=== PATIENT | male | born 1950 | race Caucasian/White ===

== ENCOUNTER 2018-05-04 15:40 | Observation (INO) | payer MEDICARE, OTHER ==
[~2018-05-04 15:40] MED LIST: ATOR40TA49 PO; GLYB2.5T3 OR; LEVE500 PO; LISI2.5T55 PO; MACR100C PO; METO50TA OR; PLAV75TA PO; SERT-129 PO; VITA500S3 PO
[2018-05-04 16:00] VITALS: BP 166/81; PULSE 60; RESP 20; TEMP 98.1; O2SAT 96
[2018-05-04] MEDS ORDERED: SODIUM CHLORIDE 0.9% FLUSH 10 ML FLUSH IVF PRN (16:00)
[2018-05-04] MEDS ORDERED: ZOLO50TA PO (16:18)
[2018-05-04] MEDS ORDERED: METO25TA3 PO (16:18)
[2018-05-04] MEDS ORDERED: ASPI81TA16 PO (16:18)
[2018-05-04] MEDS ORDERED: NU-IRON PO (16:18)
[2018-05-04] MEDS ORDERED: SENN8.6T8 PO (16:18)
[2018-05-04] MEDS ORDERED: MULTTAB62 PO (16:18)
[2018-05-04] MEDS ORDERED: TYLE325T PO (16:18)
[2018-05-04] MEDS ORDERED: CHLO.12%30 SWISH-SPIT (16:18)
[2018-05-04] MEDS ORDERED: VITA250T3 PO (16:18)
[2018-05-04] MEDS ORDERED: COLA100C5 PO (16:18)
--- NOTE | 2018-05-04 16:33 | PD ---
HPI Chief Complaint: Chest Pain Time Seen by Provider: 16:15 Travel History International Travel<30 days: No Contact w/Intl Traveler<30days: No Traveled to known affect area: No History of Present Illness HPI The patient 67 years old. He arrives to the ED by EMS. He arrives in indigo manner. His past medical history includes diabetes hypertension hyperlipidemia coronary artery disease and stroke. Dementia is also included on the patient's list of diagnoses. At the nursing facility today he was observed to have been in distress evidently clutching his heart. This lasted about 10-15 minutes. He received 2 full dose aspirins. Pain resolved in route to the ED. EMS reports normal vital signs en route. The patient denies chest pain in the ED. PFSH Past Medical History Arthritis: Yes Blood Disorders: No Cancer: No Cardiac Catheterization: Yes Cardiovascular Problems: Yes High Cholesterol: Yes Chemotherapy: No Congestive Heart Failure: No Cerebrovascular Accident: Yes (X 2 RECENTLY, with R vertebral artery dissection ) Coronary Artery Disease: Yes Diabetes: Yes Endocrine: Yes Genitourinary: Yes Hypertension: Yes Immune Disorder: No Kidney Stones: Yes Neurologic: No Psychiatric: No Reproductive: No Respiratory: No Radiation Therapy: No Ulcer: Yes Past Surgical History [facility] St[facility]: Yes ([facility]) Eye Surgery: Yes Other Surgery: Yes (PVD STENT LEFT FEMORAL) Social History Alcohol Use: Yes (RUN - PT STATES HE HAD 2 DRINKS TODAY) Tobacco Use: Yes (11/30 PPD) Substance Use: No Allergies-Medications (Allergen,Severity, Reaction): Coded Allergies: quetiapine (Unverified Adverse Reaction, Unknown, 06/23/17) IRREGULAR HEART BEAT Reported Meds & Prescriptions Reported Meds & Active Scripts Active Reported Senna S (Sennosides-Docusate Sodium) 8.6-50 Mg Tab 1 Tab PO BID PRN Colace (Docusate Sodium) 100 Mg Capsule 100 Mg PO Q12HR Metoprolol Tartrate 25 Mg Tab 25 Mg PO BID Chlorhexidine Gluconate (Mouth) Liq (Chlorhexidine Gluconate) 0.12% Soln 30 Ml SWISH-SPIT BIDPC Vitamin C (Ascorbic Acid) 250 Mg Tab 500 Mg PO DAILY Tylenol (Acetaminophen) 325 Mg Tab 650 Mg PO Q4H PRN Poly-Iron 150 (Polysaccharide Iron Complex) 150 Mg Iron Cap 150 Mg PO DAILY Multi-Vitamin/Minerals (Multiple Vitamins W/ Minerals) 1 Tab Tab 1 Tab PO DAILY Zoloft (Sertraline HCl) 50 Mg Tab 50 Mg PO DAILY Aspirin Adult Low Strength (Aspirin) 81 Mg Tabdr 81 Mg PO DAILY Review of Systems ROS Limitations: Clinical Condition Physical Exam Narrative GENERAL: 67-year-old male no acute distress awake somewhat of a poor historian SKIN: Warm and dry. HEAD: Atraumatic. Normocephalic. EYES: Pupils equal and round. No scleral icterus. No injection or drainage. ENT: No nasal bleeding or discharge. Mucous membranes pink and moist. NECK: Trachea midline. No JVD. CARDIOVASCULAR: Regular rate and rhythm. RESPIRATORY: No accessory muscle use. Clear to auscultation. Breath sounds equal bilaterally. GASTROINTESTINAL: Abdomen soft, non-tender, nondistended. Hepatic and splenic margins not palpable. MUSCULOSKELETAL: Extremities without clubbing, cyanosis, or edema. No obvious deformities. NEUROLOGICAL: Awake and alert. The patient answers yes and no some questions. There is flexion deformity of the right upper extremity. PSYCHIATRIC: Appropriate mood and affect; insight and judgment normal. Data Data Last Documented VS Vital Signs Date Time Temp Pulse Resp B/P (MAP) Pulse Ox O2 Delivery O2 Flow Rate FiO2 05/04/18 16:55 98 Room Air 05/04/18 16:00 98.1 60 20 166/81 (109) Orders Orders Ckmb (Isoenzyme) Profile (05/04/18 15:54) Complete Blood Count With Diff (05/04/18 15:54) Comprehensive Metabolic Panel (05/04/18 15:54) Magnesium (Mg) (05/04/18 15:54) Prothrombin Time / Inr (Pt) (05/04/18 15:54) Act Partial Throm Time (Ptt) (05/04/18 15:54) Troponin I (05/04/18 15:54) Ecg Monitoring (05/04/18 15:54) Bilateral Bp Monitoring (05/04/18 15:54) Iv Access Insert/Monitor (05/04/18 15:54) Oximetry (05/04/18 15:54) Oxygen Administration (05/04/18 15:54) Sodium Chloride 0.9% Flush (Ns Flush) (05/04/18 16:00) Chest, Pa & Lat (05/04/18 15:54) Activity Bed Rest With Brp (05/04/18 17:07) Vital Signs (Adult) Q4H (05/04/18 17:07) Cardiac Rhythm .As Directed (05/04/18 17:07) Notify Dr: Other .PRN (05/04/18 17:07) Notify DrGonzalez Parameters (05/04/18 17:07) Resp Oxygen Nasal Cannula (05/04/18 ) Ckmb (Isoenzyme) Profile (05/04/18 17:07) Ckmb (Isoenzyme) Profile (05/04/18 20:07) Troponin I (05/04/18 17:07) Troponin I (05/04/18 20:07) Electrocardiogram (05/04/18 17:07) Electrocardiogram (05/04/18 20:07) ^ Obtain (05/04/18 17:07) Sodium Chloride 0.9% Flush (Ns Flush) (05/04/18 17:15) Sodium Chloride 0.9% Flush (Ns Flush) (05/04/18 21:00) Acetamin-Hydrocod 325-7.5 Mg ([place] 7.5 (05/04/18 17:15) Morphine Inj (Morphine Inj) (05/04/18 17:15) Ondansetron Inj (Zofran Inj) (05/04/18 17:15) Nitroglycerin 2% Oint (Nitroglycerin 2% (05/04/18 18:00) Nitroglycerin Sl (Nitrostat Sl) (05/04/18 17:15) Aspirin (Aspirin) (05/05/18 09:00) Customer Care Representative / Telemetry VERA.Q8H (05/04/18 17:07) Admit Order (Ed Use Only) (05/04/18 17:14) Labs Laboratory Tests Test 05/04/18 16:18 White Blood Count 7.8 TH/MM3 Red Blood Count 4.56 MIL/MM3 Hemoglobin 13.4 GM/DL Hematocrit 40.3 % Mean Corpuscular Volume 88.4 FL Mean Corpuscular Hemoglobin 29.4 PG Mean Corpuscular Hemoglobin Concent 33.3 % Red Cell Distribution Width 13.3 % Platelet Count 305 TH/MM3 Mean Platelet Volume 8.7 FL Neutrophils (%) (Auto) 70.7 % Lymphocytes (%) (Auto) 14.4 % Monocytes (%) (Auto) 10.0 % Eosinophils (%) (Auto) 4.3 % Basophils (%) (Auto) 0.6 % Neutrophils # (Auto) 5.5 TH/MM3 Lymphocytes # (Auto) 1.1 TH/MM3 Monocytes # (Auto) 0.8 TH/MM3 Eosinophils # (Auto) 0.3 TH/MM3 Basophils # (Auto) 0.0 TH/MM3 CBC Comment DIFF FINAL Differential Comment Prothrombin Time 10.1 SEC Prothromb Time International Ratio 1.0 RATIO Activated Partial Thromboplast Time 31.4 SEC Blood Urea Nitrogen 28 MG/DL Creatinine 1.35 MG/DL Random Glucose 118 MG/DL Total Protein 8.2 GM/DL Albumin 3.6 GM/DL Calcium Level 9.2 MG/DL Magnesium Level 2.5 MG/DL Alkaline Phosphatase 97 U/L Aspartate Amino Transf (AST/SGOT) 26 U/L Alanine Aminotransferase (ALT/SGPT) 19 U/L Total Bilirubin 0.2 MG/DL Sodium Level 141 MEQ/L Potassium Level 3.9 MEQ/L Chloride Level 105 MEQ/L Carbon Dioxide Level 29.0 MEQ/L Anion Gap 7 MEQ/L Estimat Glomerular Filtration Rate 53 ML/MIN Total Creatine Kinase 46 U/L Troponin I LESS THAN 0.02 NG/ML MDM Medical Decision Making Medical Screen Exam Complete: Yes Emergency Medical Condition: Yes Medical Record Reviewed: Yes Differential Diagnosis NSTEMI, unstable angina, coronary vasospasm, PE, PTX, aortic dissection, pericarditis, myocarditis, endocarditis, PNA, esophageal disease, aneurysm, musculoskeletal etiologies, anxiety, cocaine/sympathomimetic abuse Narrative Course CBC & BMP Diagram 05/04/18 16:18 Albumin 3.6, Calcium Level 9.2, Magnesium Level 2.5, Aspartate Amino Transf (AST /SGOT) 26, Alanine Aminotransferase (ALT/SGPT) 19 EKG shows a sinus rhythm with a rate of [address] changes with T-wave flattening in the precordial leads noted Last Impressions Chest X-Ray 05/04/18 1554 Signed Impressions: CONCLUSION: No acute cardiopulmonary abnormality is identified. Chest pain center protocol considered next best step for this patient. Diagnosis Primary Impression: Chest pain Qualified Codes: R07.9 - Chest pain, unspecified Admitting Information Admitting Physician Requests: Observation Gopal Okeefe MD May 04, 2018 16:33
--- NOTE | 2018-05-04 16:42 | RADRPT ---
EXAM DATE: 05/04/2018 4:19 PM EDT AGE/SEX: 67 years / Male INDICATIONS: Chest pain. CLINICAL DATA: This is the patient's initial encounter. Patient reports that signs and symptoms have been present for 1 day and indicates a pain score of 9/10. MEDICAL/SURGICAL HISTORY: Hypercholesterolemia. Hypertension. Mesenteric ischemia. Cerebrova scular accident, CAD, Ulcer, Kidney stones, Arthritis, Endocrine disorders, Diabetes, PTSD Coronary artery stent. Right vertebral artery dissection, Right leg bypass, Eye surgery with prosthesis [place] [facility] [place] 05[place]. . FINDINGS: AP and lateral views of the chest demonstrate a normal-sized cardiac silhouette. There is no effusion , consolidation, or pneumothorax. The bones and soft tissues demonstrate no acute abnormality. CONCLUSION: No acute cardiopulmonary abnormality is identified. Electronically signed by: Corey Trinidad MD 05/04/2018 4:41 PM EDT
[2018-05-04 16:48] LABS: PROTHROMBIN TIME - PATIENT 10.1 SEC (9.8-11.6)
[2018-05-04 16:53] LABS: AUTOMATED NEUTROPHIL # 5.5 TH/MM3 (1.8-7.7); BASOPHIL % 0.6 % (0.0-2.0); EOSINOPHIL # 0.3 TH/MM3 (0-0.4); EOSINOPHIL % 4.3 % (0.0-4.0); HEMATOCRIT 40.3 % (39.0-51.0); HEMOGLOBIN 13.4 GM/DL (13.0-17.0); LYMPH % 14.4 % (9.0-44.0); LYMPHOCYTE # 1.1 TH/MM3 (1.0-4.8); MEAN CELL VOLUME 88.4 FL (80.0-100.0); MEAN CORPUSCULAR HEMOGLOBIN 29.4 PG (27.0-34.0); MEAN CORPUSCULAR HGB CONC 33.3 % (32.0-36.0); MEAN PLATELET VOLUME 8.7 FL (7.0-11.0); MONOCYTE # 0.8 TH/MM3 (0-0.9); NEUT % 70.7 % (16.0-70.0); PLATELET COUNT 305 TH/MM3 (150-450); RED BLOOD COUNT 4.56 MIL/MM3 (4.50-5.90); RED CELL DISTRIBUTION WIDTH 13.3 % (11.6-17.2); WHITE BLOOD COUNT 7.8 TH/MM3 (4.0-11.0)
[2018-05-04 16:55] VITALS: O2SAT 98
[2018-05-04 17:05] LABS: ALBUMIN 3.6 GM/DL (3.4-5.0); ALT (GPT) 19 U/L (12-78); AST (GOT) 26 U/L (15-37); BLOOD UREA NITROGEN 28 MG/DL (7-18); CALCIUM 9.2 MG/DL (8.5-10.1); CHLORIDE 105 MEQ/L (98-107); CREATININE 1.35 MG/DL (0.60-1.30); GLOMERULAR FILTRATION RATE 53 ML/MIN (>89); GLUCOSE,RANDOM 118 MG/DL (74-106); MAGNESIUM 2.5 MG/DL (1.5-2.5); SODIUM (NA) 141 MEQ/L (136-145)
[2018-05-04 17:09] LABS: ALKALINE PHOSPHATASE 97 U/L (45-117); TOTAL BILIRUBIN ADULT 0.2 MG/DL (0.2-1.0); TOTAL PROTEIN 8.2 GM/DL (6.4-8.2); TROPONIN I LESS THAN 0.02 NG/ML (0.02-0.05)
[2018-05-04] MEDS ORDERED: MORPHINE SULFATE 4 MG/ML INJ IV PUSH PRN (17:15)
[2018-05-04] MEDS ORDERED: ACETAMINOPHEN/HYDROcodone 325 MG/7.5 MG TAB PO PRN (17:15)
[2018-05-04] MEDS ORDERED: ONDANSETRON HCL 4 MG/2 ML VIAL IV PUSH PRN (17:15)
[2018-05-04] MEDS ORDERED: NITROGLYCERIN 0.4 MG SL 25 TABS/BTL SL PRN (17:15)
[2018-05-04] MEDS ORDERED: SODIUM CHLORIDE 0.9% FLUSH 10 ML FLUSH IV FLUSH PRN (17:15)
[2018-05-04 17:58] VITALS: O2SAT 98
[2018-05-04] MEDS: NITROGLYCERIN 2% OINT 1 GM PACKET TOP SCH (18:00)
[2018-05-04 20:13] VITALS: BP 132/62; PULSE 58; RESP 16; TEMP 98; O2SAT 100
[2018-05-04 20:35] LABS: TROPONIN I LESS THAN 0.02 NG/ML (0.02-0.05)
[2018-05-04] MEDS: SODIUM CHLORIDE 0.9% FLUSH 10 ML FLUSH IV FLUSH SCH (22:29)
[2018-05-04 23:01] LABS: TROPONIN I LESS THAN 0.02 NG/ML (0.02-0.05)
[2018-05-05 00:16] VITALS: BP 151/66; PULSE 58; RESP 16; TEMP 98.2; O2SAT 97
[2018-05-05] MEDS: NITROGLYCERIN 2% OINT 1 GM PACKET TOP SCH ×3 (00:38→12:00)
[2018-05-05 02:55] VITALS: PULSE 51
[2018-05-05 04:01] VITALS: BP 126/58; PULSE 70; RESP 17; TEMP 98; O2SAT 97
--- NOTE | 2018-05-05 07:35 | HHI.HP ---
HPI Primary Care Physician Lanre Kent MD (Paul) Chief Complaint Chest pain History of Present Illness 67-year-old male with history of coronary artery disease, hypertension, hyperlipidemia, dementia, and CVA with right-sided deficits currently under hospice care presents emergency room for further evaluation of chest pain. Onset last evening. Location substernal. Characterized as sharp. Duration 3 hours. Her to take a deep breath. No other associated symptoms of nausea, vomiting, dyspnea, or diaphoresis. Denies similar pain in the past. Resides [facility] [place] [facility] and essentially bedbound. No current chest discomfort. Review of Systems General: No fatigue, weakness, fever, chills, or recent illness. Patient is somewhat of a poor historian. HEENT: No MUÑOZ, no vision changes CV: As stated above. No current chest discomfort. RESP: No SOB. Nonproductive cough. GI: No nausea, vomiting, or bowel changes : No dysuria, urgency, frequency EXT: No lower leg edema MS: No discomfort or change in ROM. Right side weakness status post CVA. NEURO: History of CVA 3, CVA 2012 severe. States left his right side weak. PSYCH: No anxiety or depression SKIN: No rashes, no concerning lesions Past Family Social History Allergies: Coded Allergies: quetiapine (Unverified Adverse Reaction, Unknown, 06/23/17) IRREGULAR HEART BEAT Past Medical History Hypertension, hyperlipidemia, CAD, CVAx3, [place], multiple cardiac stents, PVD, dementia, right vertebral dissection (2012), right sided deficit, remote etoh abuse Past Surgical History Fem bypass (2009) Reported Medications Reported Meds & Active Scripts Active Reported Senna S (Sennosides-Docusate Sodium) 8.6-50 Mg Tab 1 Tab PO BID PRN Colace (Docusate Sodium) 100 Mg Capsule 100 Mg PO Q12HR Metoprolol Tartrate 25 Mg Tab 25 Mg PO BID Chlorhexidine Gluconate (Mouth) Liq (Chlorhexidine Gluconate) 0.12% Soln 30 Ml SWISH-SPIT BIDPC Vitamin C (Ascorbic Acid) 250 Mg Tab 500 Mg PO DAILY Tylenol (Acetaminophen) 325 Mg Tab 650 Mg PO Q4H PRN Poly-Iron 150 (Polysaccharide Iron Complex) 150 Mg Iron Cap 150 Mg PO DAILY Multi-Vitamin/Minerals (Multiple Vitamins W/ Minerals) 1 Tab Tab 1 Tab PO DAILY Zoloft (Sertraline HCl) 50 Mg Tab 50 Mg PO DAILY Aspirin Adult Low Strength (Aspirin) 81 Mg Tabdr 81 Mg PO DAILY Active Ordered Medications Current Medications Medications (Trade) Dose Ordered Sig/Gabi Route Start Time Stop Time Status Last Admin (NS Flush) 2 ml UNSCH PRN IVF 05/04/18 16:00 (NS Flush) 2 ml UNSCH PRN IV FLUSH 05/04/18 17:15 (NS Flush) 2 ml BID IV FLUSH 05/04/18 21:00 05/04/18 22:29 ([place] 7.5-325 Mg) 1 tab Q4H PRN PO 05/04/18 17:15 (Morphine Inj) 2 mg Q4H PRN IV PUSH 05/04/18 17:15 (Zofran Inj) 4 mg Q6H PRN IV PUSH 05/04/18 17:15 (Nitroglycerin 2% Oint) 1 inch Q6HR TOP 05/04/18 18:00 05/05/18 06:13 (Nitrostat Sl) 0.4 mg Q5M PRN SL 05/04/18 17:15 (Aspirin) 325 mg DAILY PO 05/05/18 09:00 Social History Known coronary artery disease, hypertension, and hyperlipidemia. No known diabetes (despite medical records) Past cardiac testing No recent testing. Spoke with family member, who is a RN here at [facility]. Reports multiple cardiac stents, possibly 7 stents. Physical Exam Vital Signs Vital Signs Date Time Temp Pulse Resp B/P (MAP) Pulse Ox O2 Delivery O2 Flow Rate FiO2 05/05/18 04:01 98.0 70 17 126/58 (80) 97 05/05/18 02:55 51 05/05/18 00:16 98.2 58 16 151/66 (94) 97 05/04/18 20:13 98.0 58 16 132/62 (85) 100 05/04/18 17:58 98 21 05/04/18 16:55 98 Room Air 05/04/18 16:55 98 Room Air 05/04/18 16:00 98.1 60 20 166/81 (109) 96 Physical Exam GENERAL: Alert thin, frail, WD, NAD, pleasant, elderly male who is somewhat of a poor historian. HEAD: NC, AT EYES: Sclera clear, conjunctiva without injection, pupils equal and round ENT: Mucous membranes pink and moist, no nasal discharge or bleeding CV: RRR, without murmur, rub, gallop, no JVD, S1-S2 no S3-S4. RESP: Clear lungs throughout bilateral, no crackles, wheeze, rhonchi, symmetrical chest rise, nonlabored, able to speak in full sentences ABD: Soft, NT, ND, no masses, positive bowel tones EXT: Pulses +2x4, no dependent edema MS: Normal tone x4 extremities, nontender, no obvious deformities, full range of motion NEURO: Right sided weakness PSYCH: A+O x3, pleasant affect, appropriate speech, mood, insight and judgment SKIN: Normal turgor, normal texture, no lesions, no rashes Laboratory Laboratory Tests Test 05/04/18 16:18 05/04/18 19:15 05/04/18 22:30 White Blood Count 7.8 Red Blood Count 4.56 Hemoglobin 13.4 Hematocrit 40.3 Mean Corpuscular Volume 88.4 Mean Corpuscular Hemoglobin 29.4 Mean Corpuscular Hemoglobin Concent 33.3 Red Cell Distribution Width 13.3 Platelet Count 305 Mean Platelet Volume 8.7 Neutrophils (%) (Auto) 70.7 Lymphocytes (%) (Auto) 14.4 Monocytes (%) (Auto) 10.0 Eosinophils (%) (Auto) 4.3 Basophils (%) (Auto) 0.6 Neutrophils # (Auto) 5.5 Lymphocytes # (Auto) 1.1 Monocytes # (Auto) 0.8 Eosinophils # (Auto) 0.3 Basophils # (Auto) 0.0 CBC Comment DIFF FINAL Differential Comment Prothrombin Time 10.1 Prothromb Time International Ratio 1.0 Activated Partial Thromboplast Time 31.4 Blood Urea Nitrogen 28 Creatinine 1.35 Random Glucose 118 Total Protein 8.2 Albumin 3.6 Calcium Level 9.2 Magnesium Level 2.5 Alkaline Phosphatase 97 Aspartate Amino Transf (AST/SGOT) 26 Alanine Aminotransferase (ALT/SGPT) 19 Total Bilirubin 0.2 Sodium Level 141 Potassium Level 3.9 Chloride Level 105 Carbon Dioxide Level 29.0 Anion Gap 7 Estimat Glomerular Filtration Rate 53 Total Creatine Kinase 46 42 42 Troponin I LESS THAN 0.02 LESS THAN 0.02 LESS THAN 0.02 Result Diagram: 05/04/18 1618 05/04/18 1618 Imaging Last 24 hours Impressions Chest X-Ray 05/04/18 6307 Signed Impressions: CONCLUSION: No acute cardiopulmonary abnormality is identified. Course EKG NSR, normal axis, t wave nonspecific changes Caprini VTE Risk Assessment Caprini VTE Risk Assessment: Mod/High Risk (score >= 2) Caprini Risk Assessment Model Point Value = 1 Point Value = 2 Point Value = 3 Point Value = 5 Age 41-60 Minor surgery BMI > 25 kg/m2 Swollen legs Varicose veins or History of unexplained or recurrent spontaneous Oral contraceptives or hormone replacement Sepsis (< 1 month) Serious lung disease, including pneumonia (< 1 month) Abnormal pulmonary function Acute myocardial infarction Congestive heart failure (< 1 month) History of inflammatory bowel disease Medical patient at bed rest Age 61-74 Arthroscopic surgery Major open surgery (> 45 min) Laparoscopic surgery (> 45 min) Malignancy Confined to bed (> 72 hours) Immobilizing plaster cast Central venous access Age >= 75 History of VTE Family history of VTE Factor V Leiden Prothrombin [id number] Lupus anticoagulant Anticardiolipin antibodies Elevated serum homocysteine Heparin-induced thrombocytopenia Other congenital or acquired thrombophilia Stroke (< 1 month) Elective arthroplasty Hip, pelvis, or leg fracture Acute spinal cord injury (< 1 month) Prophylaxis Regimen Total Risk Factor Score Risk Level Prophylaxis Regimen 0-1 Low Early ambulation 2 Moderate Order ONE of the following: *Sequential Compression Device (SCD) *Heparin 5000 units SQ BID 3-4 Higher Order ONE of the following medications: *Heparin 5000 units SQ TID *Enoxaparin/Lovenox 40 mg SQ daily (WT < 150 kg, CrCl > 30 mL/min) *Enoxaparin/Lovenox 30 mg SQ daily (WT < 150 kg, CrCl > 10-29 mL/min) *Enoxaparin/Lovenox 30 mg SQ BID (WT < 150 kg, CrCl > 30 mL/min) AND/OR *Sequential Compression Device (SCD) 5 or more Highest Order ONE of the following medications: *Heparin 5000 units SQ TID (Preferred with Epidurals) *Enoxaparin/Lovenox 40 mg SQ daily (WT < 150 kg, CrCl > 30 mL/min) *Enoxaparin/Lovenox 30 mg SQ daily (WT < 150 kg, CrCl > 10-29 mL/min) *Enoxaparin/Lovenox 30 mg SQ BID (WT < 150 kg, CrCl > 30 mL/min) AND *Sequential Compression Device (SCD) Assessment and Plan Assessment and Plan Atypical chest pain. Admitted to chest pain center. Ruled out with 3 sets of EKGs and cardiac enzymes. Seen and evaluated by Dr. Reese Johnson. Obtain d- dimer. Once PE ruled out plans to discharge back to [facility]. Discussed plan of care with family member, Sarah. No further cardiac testing at this time. Will call patient's hospice to update on arrival to ER. At this time patient is agreeable to completing one more lab test and at CT of chest if needed. Diet ordered and plan of care discussed with patient's RN. 0945 Spoke with Vi, rn nursery. Discussed plan of care. D dimer elevated. Proceed with Ct pulmonary angiogram. Once PE ruled out will discharge back to [facility]. Vi states she is available to arrange transport upon discharge and will coordinate this with RN. Shadia Eisenberg May 05, 2018 07:35
[2018-05-05 07:52] VITALS: BP 122/59; PULSE 61; RESP 18; TEMP 97.7; O2SAT 97
[2018-05-05] MEDS ORDERED: ASPIRIN 325 MG TAB PO SCH (09:00)
[2018-05-05 09:45] VITALS: PULSE 53
[2018-05-05] MEDS ORDERED: IOHEXOL 350 MG/ML 10 ML VIAL (for RAD DIAG) IVCONTRAST ONE (10:21)
--- NOTE | 2018-05-05 10:38 | RADRPT ---
EXAM DATE: 05/05/2018 10:20 AM EDT AGE/SEX: 67 years / Male INDICATIONS: Chest pain and shortness of breath. CLINICAL DATA: This is the patient's initial encounter. Patient reports that signs and symptoms have been present for 1 day and indicates a pain score of 4/10. MEDICAL/SURGICAL HISTORY: Cardiovascular disease. Hyperparathyroidism. Diabetes. None. RADIATION DOSE: 9.77 CTDI (mGy) COMPARISON: No prior exams available for comparison. TECHNIQUE: Volumetric scanning was performed using a multi-row detector CT scanner during bolus infu conrad of 73 ml Omnipaque 350 (iohexol) nonionic water-soluble contrast as a single exam dose. The jose armando a was post processed with a variety of visualization algorithms including full volume maximum intensi ty projection and sliding thin slab reformation. Using automated exposure control and adjustment of the mA and/or kV according to patient size, radiation dose was kept as low as reasonably achievable t o obtain optimal diagnostic quality images. DICOM format image data is available electronically for review and comparison. FINDINGS: Pulmonary Arteries: No filling defects are seen in the pulmonary arteries out to the subsegmental ve ssels. The left and right pulmonary arteries are normal in diameter. Lung: There is mild basilar bronchiectasis and streaky interstitial thickening in the posterior lung bases. Effusion: None. Mediastinum: No evidence of mediastinal or hilar adenopathy. Other: The axilla is unremarkable. CONCLUSION: No evidence of pulmonary embolism. Electronically signed by: Corey March MD 05/05/2018 10:37 AM EDT
--- NOTE | 2018-05-05 10:58 | HHI.DCPOC ---
Discharge Care Plan Diagnosis: (1) Atypical chest pain Goals to Promote Your Health * To prevent worsening of your condition and complications * To maintain your health at the optimal level Directions to Meet Your Goals Take your medications as prescribed Follow your dietary instruction Follow activity as directed Keep your appointments as scheduled Take your immunizations and boosters as scheduled If your symptoms worsen call your PCP, if no PCP go to Urgent Care Center or Emergency Room Smoking is Dangerous to Your Health. Avoid second hand smoke Call the 24-hour hour crisis hotline for domestic abuse at Shadia Eisenberg May 05, 2018 10:58
[2018-05-05] MEDS: SODIUM CHLORIDE 0.9% FLUSH 10 ML FLUSH IV FLUSH SCH (11:02)
--- NOTE | 2018-05-05 11:39 | EKG ---
Date Performed: 05/04/2018 Time Performed: 22:29:47 PTAGE: 67 years EKG: Sinus rhythm NONSPECIFIC T-WAVE ABNORMALITY BORDERLINE ECG PREVIOUS TRACING : 05/04/2018 19.39 Since previous tracing, no significant change noted DOCTOR: Reese Johnson Interpretating Date/Time 05/05/2018 11:37:50
--- NOTE | 2018-05-05 11:40 | EKG ---
Date Performed: 05/04/2018 Time Performed: 19:39:02 PTAGE: 67 years EKG: SINUS BRADYCARDIA NONSPECIFIC T-WAVE ABNORMALITY BORDERLINE ECG PREVIOUS TRACING : 05/04/2018 16.45 Since previous tracing, no significant change noted DOCTOR: Reese Johnson Interpretating Date/Time 05/05/2018 11:38:51
--- NOTE | 2018-05-05 11:41 | EKG ---
Date Performed: 05/04/2018 Time Performed: 16:45:02 PTAGE: 67 years EKG: SINUS BRADYCARDIA NONSPECIFIC T-WAVE ABNORMALITY BORDERLINE ECG PREVIOUS TRACING : 05/20/2013 07.28 Since previous tracing, no significant change noted DOCTOR: Reese Johnson Interpretating Date/Time 05/05/2018 11:39:50
[2018-05-05 12:42] VITALS: BP 141/65; PULSE 62; RESP 16; TEMP 97.8; O2SAT 98
== END 2018-05-05 15:29 | disposition home or self-care (01) ==
LOC: NEPD 15:40 → NEDA 17:16 → NEPHCDU 19:30
PROVIDERS: ADMIT Internal Medicine Cardiovascular Disease; ATTEND Internal Medicine Cardiovascular Disease
DX: R07.89 Other chest pain (principal); Z86.73 Personal history of transient ischemic attack (TIA), and cerebral infarction without residual deficits; I25.10 Atherosclerotic heart disease of native coronary artery without angina pectoris; I10 Essential (primary) hypertension; E78.5 Hyperlipidemia, unspecified; F03.90 Unspecified dementia, unspecified severity, without behavioral disturbance, psychotic disturbance, mood disturbance, and anxiety; M19.90 Unspecified osteoarthritis, unspecified site; E78.00 Pure hypercholesterolemia, unspecified; I77.74 Dissection of vertebral artery; Z87.442 Personal history of urinary calculi; F17.210 Nicotine dependence, cigarettes, uncomplicated; Z79.899 Other long term (current) drug therapy; Z74.01 Bed confinement status; Z95.5 Presence of coronary angioplasty implant and graft; E21.3 Hyperparathyroidism, unspecified; R00.1 Bradycardia, unspecified
CPT/HCPCS: 71046; 71275; 80053; 82550; 83735; 84484; 85025; 85379; 85610; 85730; 93005; 99285; G0378; Q9967